=== PATIENT | female | born 1935 | race Caucasian/White ===

== ENCOUNTER 2020-05-10 13:42 | Emergency (ER) | payer MEDICARE, SELFPAY ==
--- NOTE | ~2020-05-10 | CT_ITS ---
EXAMINATION: CT cervical spine wo con EXAM DATE: 05/10/2020 14:31 INDICATION: Neck injury, fall. Left frontal head injury. TECHNIQUE: Spiral CT of the cervical spine was performed without contrast. Axial images were reviewe d. Coronal and sagittal reformatted images were also reviewed. The dose-length product (DLP) for thi s examination was 605.33 mGy-cm. The exposure was tailored according to patient size (auto mA exposu re control), and iterative reconstruction (ASIR) was used as additional dose reduction technique. Th ere is no prior study for comparison. FINDINGS: There is no evidence of acute cervical fracture. The odontoid process is intact. Pre-dens space is normal. Prevertebral soft tissue is normal. There are no soft tissue abnormalities identi fied. There is no disc space widening or traumatic vertebral body subluxation suspected. There is a dvanced cervical spondylosis. A detailed level by level evaluation of spondylosis can be added as ad dendum if requested. IMPRESSION: 1. No acute cervical fracture. 2. Advanced cervical spondylosis. Reviewed, dictated and finalized at location B. RAL LOT ATTENDANT
--- NOTE | ~2020-05-10 | CT_ITS ---
EXAMINATION: CT brain wo con DATE: 05/10/2020 14:31 INDICATION: Head injury. TECHNIQUE: Computed tomography (CT) of the head was performed without intravenous contrast. The mA wa s adjusted according to patient size. Iterative reconstruction technique was employed. The dose-lengt h product was 605.33 mGy-cm. COMPARISON: None FINDINGS: There is an old lacunar infarct in left lentiform nucleus. There are scattered areas of low attenuation in the cerebral white matter. There is no intracranial hemorrhage, acute infarction, or abnormal intracranial mass lesion. The ventricles are normal in size. There are likely changes of ocu lar lens replacement surgeries. There is mucosal thickening in right maxillary sinus with thickening and sclerosis of the sinus sanchez, consistent with chronic sinusitis. The mastoid air cells are normal . IMPRESSION: 1. 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 2. Moderate nonspecific cerebral white matter disease, which likely represents chronic small vessel i schemic disease. 3. Chronic sinusitis. Reviewed, dictated and finalized at location A. UNTANT PROPERTY IMPRESSION: 1. 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 2. Moderate nonspecific cerebral white matter disease, which likely represents chronic small vessel ischemic disease. 3. Chronic sinusitis.
[2020-05-10 14:02] VITALS: BP 155/67; PULSE 103; RESP 20; TEMP 36.6; O2SAT 100
[2020-05-10 14:45] VITALS: BP 144/69; PULSE 92; RESP 20; O2SAT 100
--- NOTE | 2020-05-10 15:13 | ED.FALL ---
HPI - Fall General Chief Complaint: Fall Stated Complaint: ambulance Source: patient Mode of arrival: ambulatory History of Present Illness HPI Narrative: This is a 85-year-old female from [facility] that had a fall earlier today she was out of doors on the grass and hit her head and has a abrasion to the left frontal scalp area, the patient was brought in by EMS had a cervical collar placed the patient was not complaining of any headaches no loss of consciousness no neck pain no numbness or tingling in her in her arms or fingers can move all extremities with no bruising. Currently there is no shortness of breath no headaches no blurry vision no nausea vomiting no chest pain or abdominal pain. complaint: fall Onset (ago): hour(s) Fall from: standing Fall witnessed: yes, by living facility staff Place fall occurred[facility] Loss of consciousness: none Prolonged down time: no Symptoms prior to fall: none Related Data Home Medications Medication Instructions Recorded Confirmed aspirin [Aspir-81] 81 mg PO DAILY 05/10/20 05/10/20 calcium 500 mg PO DAILY 05/10/20 05/10/20 clobetasol 1 applic TOPICAL BID 05/10/20 05/10/20 lisinopril 5 mg PO DAILY 05/10/20 05/10/20 metformin 500 mg PO HS 05/10/20 05/10/20 dhelvezzjlau-zcyh-rxiec acid 1 tablet PO DAILY 05/10/20 05/10/20 [Centrum] sertraline 100 mg PO DAILY 05/10/20 05/10/20 Allergies Allergy/AdvReac Type Severity Reaction Status Date / Time No Known Allergies Allergy Verified 05/10/20 14:17 Review of Systems Review of Systems: All systems reviewed & are unremarkable except as noted in HPI and below [facility] Past Medical History Medical History HTN (hypertension) Social History Social History Gender identity (if verbalized by the patient): Female Exam Const: General: no acute distress Orientation/consciousness: patient oriented x3 HENMT: Head: normal to inspection Head images: 1. abrasion Eyes: Pupils: Equal, round and reactive pupils present Neck: Neck: normal visual inspection, no lymphadenopathy and no meningeal signs Chest: Chest palpation & inspection: normal inspection of the chest Resp: Effort & Inspection: normal respiratory effort Auscultation: clear to auscultation bilaterally Cardio: Rate: regular rate Rhythm: regular rhythm GI: Auscultation: normal bowel sounds : General: Yes no CVA tenderness Back/Spine/Pelvis: Back: no CVA tenderness Skin: General skin exam: normal color Other: abrasion to left frontal scalp area /forehead Neuro: General: moves all extremities, no meningeal signs and no focal motor deficits Extrem: General: normal to inspection Psych: Mental Status: mental status grossly normal Course Course Emergency Course: reassessment of patient, doing well no neurological deficits currently no headaches no blurry vision no nausea vomiting and informed patient of CT scan of head and neck were without any acute findings. Vital Signs Vital signs: Vital Signs Temperature 36.6 C 05/10/20 14:02 Pulse Rate 103 H 05/10/20 14:02 Respiratory Rate 20 05/10/20 14:02 Blood Pressure 155/67 H 05/10/20 14:02 Pulse Oximetry 100 05/10/20 14:02 Temperature 36.6 C 05/10/20 14:02 Pulse Rate 103 H 05/10/20 14:02 Respiratory Rate 20 05/10/20 14:02 Blood Pressure 155/67 H 05/10/20 14:02 Pulse Oximetry 100 05/10/20 14:02 Critical Care Time Critical Care Time Critical Care Time: No Discharge Plan Discharge Clinical Impression: Abrasion head Qualifiers: Encounter type: initial encounter Qualified Code(s): S00.91XA - Abrasion of unspecified part of head, initial encounter Fall Qualifiers: Encounter type: initial encounter Qualified Code(s): W19.XXXA - Unspecified fall, initial encounter Patient Disposition: Home, Self-Care Condition: Stable Instruct
[2020-05-10 15:45] VITALS: BP 158/70; PULSE 95; RESP 20; O2SAT 100
== END 2020-05-10 15:45 ==
PROVIDERS: Emergency Provider Emergency Medicine; PCP Family Medicine
DX: S00.91XA Abrasion of unspecified part of head, initial encounter (principal); W19.XXXA Unspecified fall, initial encounter; I10 Essential (primary) hypertension
CPT/HCPCS: 70450; 72125; 99282; 99284

== ENCOUNTER 2020-05-28 17:58 | Observation (INO) | payer MEDICARE, SELFPAY ==
--- NOTE | ~2020-05-28 | XR_ITS ---
EXAMINATION: XR chest 2V 05/28/2020 18:42 INDICATION: Dizziness. Fall. Generalized weakness. PROCEDURE: PA and lateral views of the chest COMPARISON: 09/23/2016 FINDINGS: The lungs are clear. The cardiomediastinal silhouette is within normal limits. There are no pleural effusions. There is no pneumothorax suspected. IMPRESSION: 1: NO ACUTE CARDIOPULMONARY DISEASE. Reviewed, dictated and finalized at location A. ONICS ENGINEERING TECHNOLOGIST
--- NOTE | ~2020-05-28 | CT_ITS ---
EXAMINATION: CT brain wo con DATE: 05/28/2020 18:41 INDICATION: Dizziness and lightheadedness. Status post fall. TECHNIQUE: Computed tomography (CT) of the head was performed without intravenous contrast. The dose- length product was 529.67 mGy-cm. The mA was adjusted according to patient size. Iterative reconstruc tion technique was employed. COMPARISON: CT dated 05/10/2020 FINDINGS: Mild generalized atrophy. There are scattered moderate periventricular and subcortical whit e matter changes, most likely related to small vessel ischemic disease (microangiopathy). No acute in tracranial hemorrhage, infarction, mass or mass effect. There is mucosal thickening of the right maxi llary sinus with air-fluid level. Mastoids are pneumatized. No depressed skull fractures. IMPRESSION: 1. No acute intracranial abnormality. 2: Right maxillary sinusitis. 3: Chronic age-related findings. Reviewed, dictated and finalized at location A. MOTIVE PROJECT ENGINEER
--- NOTE | 2020-05-28 18:09 | ECG_ITS ---
Measurements Intervals [place] Rate: 92 P: 29 ME: 182 QRS: -58 QRSD: 90 T: 66 QT: 358 QTc: 444 Interpretive Statements SINUS RHYTHM LEFT ANTERIOR FASCICULAR BLOCK BASELINE ARTIFACT- I, II, III, AVR, AVL, AVF, V1-V3 ABNORMAL ECG Electronically Signed On 05-28-2020 19:00:27 SENIOR C WEB DEVELOPER by Ezekiel Delacruz D.O.
--- NOTE | 2020-05-28 18:11 | ED.FALL ---
HPI - Fall General Chief Complaint: Fall Stated Complaint: AMB Time Seen by Provider: 05/28/20 18:00 Source: patient Mode of arrival: EMS Limitations: no limitations History of Present Illness HPI Narrative: 85-year-old woman history of falls comes in today via EMS after having fallen in her apartment at [place]. Staff states that they did not see her fall but heard a thump and found her on the floor conscious. She states that she had just returned from the bathroom where she had a diarrheal stool and felt lightheaded before she fell. She did not lose consciousness. She denies any preceding chest pain, shortness breath, dizziness, vertigo, or flushing. She states she has some mild abdominal pain. Onset (ago): hour(s) (1) Fall from: standing Fall witnessed: no Place fall occurred: [facility] Loss of consciousness: none Prolonged down time: no Symptoms prior to fall: lightheadedness Context: history of frequent falls Location of injury: head Location of injury - extremities: Bilateral: lower leg Severity: mild Associated symptoms (after fall): denies Related Data Home Medications Medication Instructions Recorded Confirmed aspirin [Aspir-81] 81 mg PO DAILY 05/10/20 05/28/20 calcium 500 mg PO DAILY 05/10/20 05/28/20 clobetasol 1 applic TOPICAL BID 05/10/20 05/28/20 lisinopril 5 mg PO DAILY 05/10/20 05/28/20 metformin 500 mg PO HS 05/10/20 05/28/20 ivemkdnxmyri-pgdd-zjqpx acid 1 tablet PO DAILY 05/10/20 05/28/20 [Centrum] sertraline 100 mg PO DAILY 05/10/20 05/28/20 Allergies Allergy/AdvReac Type Severity Reaction Status Date / Time No Known Allergies Allergy Verified 05/10/20 14:17 Review of Systems Constitutional: Constitutional: Denies chills and Denies fever(s) Eyes: Eyes: Denies change in vision and Denies photophobia ENT: Denies dysphagia, Denies nasal congestion and Denies sore throat Cardiovascular: Cardiovascular: Denies chest pain and Denies radiating jaw, neck or arm pain Respiratory: Respiratory: Denies cough and Denies dyspnea Gastrointestinal: Gastrointestinal: Reports abdominal pain, Reports diarrhea, Denies nausea and Denies vomiting Genitourinary: Genitourinary: Denies nocturia and Denies dysuria Musculoskeletal: Musculoskeletal: Denies arthralgias and Denies joint swelling Integumentary/Breasts: Skin/Breast: Denies pruritus, Denies erythema and Denies rash Neurologic: Denies vertigo, Denies dizziness, Denies syncope, Denies headache(s) and Reports weakness Hematologic/Lymphatic: Hematologic/Lymphatic: Denies easy bleeding and Denies easy bruising Allergic/Immunologic: Allergic/Immunologic: Denies throat swelling and Denies tongue swelling [facility] Past Medical History Medical History (Updated 05/28/20 @ 21:04 by Julius Jimenez MD) HTN (hypertension) T2DM (type 2 diabetes mellitus) Surgical History Surgical History (Updated 05/28/20 @ 21:04 by Julius Jimenez MD) H/O: hysterectomy Social History Social History Smoking status: Never smoker Alcohol intake: never Substance use: never Living arrangements: assisted living Gender identity (if verbalized by the patient): Female Exam Const: General: healthy appearing, no acute distress and alert Orientation/consciousness: patient oriented x3 Limitations: no limitations HENMT: Head: normal to inspection Ears: external ears normal, TM's normal bilaterally and EAC's normal General nose exam: Normal nares present Face and sinus: normal facial exam Mouth: Yes moist mucous membranes Throat: posterior oropharynx normal Eyes: Conjunctivae: conjunctivae normal Pupils: Equal, round and reactive pupils present EOM: EOMs intact bilaterally Neck: Neck: normal visual inspection and no lymphadenopathy Other: No tenderness, abnormal contour, or swelling Resp: Effort & Inspection: normal respiratory effort Auscultation: clear to auscultation bilat
[2020-05-28 18:19] VITALS: BP 126/70; PULSE 90; RESP 18; TEMP 36.6; O2SAT 96
[2020-05-28 18:49] LABS: Basophils Absolute Auto 0.04 K/mm3 (0.00-0.10); Basophils Percent Auto 0.2 % (0.0-1.0); Eosinophils Absolute Auto 0.03 K/mm3 (0.02-0.50); Eosinophils Percent Auto 0.2 % (1.0-6.0); Hemoglobin 14.1 g/dL (11.7-13.8); Immature Granulocyte Absolute 0.15 K/mm3 (0.00-0.00); Immature Granulocyte Percent A 0.8 % (0.0-0.0); Lymphocytes Absolute Auto 0.59 K/mm3 (1.10-4.50); Lymphocytes Percent Auto 3.3 % (18.0-42.0); Mean Corpuscular Hemoglobin 28.2 pg (27.0-31.0); Mean Platelet Volume 9.6 fl (9.2-11.8); Monocytes Absolute Auto 0.86 K/mm3 (0.10-0.90); Monocytes Percent Auto 4.7 % (2.0-11.0); Neutrophils Absolute Auto 16.5 K/mm3 (1.7-7.2); Neutrophils Percent Auto 90.8 % (50.0-70.0); Platelet Count Result 296 K/mm3 (150-420); Red Cell Distribution Width 14.5 % (11.6-14.4); White Blood Count 18.1 K/mm3 (4.8-10.8)
[2020-05-28 18:50] VITALS: BP 106/50; PULSE 75
[2020-05-28 18:52] VITALS: BP 106/54; PULSE 75
[2020-05-28 18:56] VITALS: BP 100/50; PULSE 88
--- NOTE | 2020-05-28 19:01 | PC.NURSE ---
daughter called & Updated
[2020-05-28 19:04] LABS: Partial Thromboplastin Time 23.7 SEC (23.90-30.70); Prothrombin Time 10.2 Seconds (9.50-12.10)
[2020-05-28 19:09] LABS: Alanine Aminotransferase 30 U/L (14-59); Albumin Level 4.2 g/dL (3.4-5.0); Alkaline Phosphatase 58 U/L (46-116); Anion Gap 9 mmol/L (8-16); Aspartate Amino Transferase 28 U/L (15-37); Bilirubin,Total 0.4 mg/dL (0.00-1.00); Blood Urea Nitrogen 28 mg/dL (7-18); Calcium 9.9 mg/dL (8.5-10.1); Carbon Dioxide 29 mmol/L (21-32); Chloride 101 mmol/L (98-108); Estimated CRCL calculation 26 ml/min; Estimated Glomerular Filt Rate 38; Glucose 173 mg/dL (70-99); Lactic Acid Reflex 2.2 mmol/L (0.4-2.0); Osmolality Calculated 297 mOsm/kg (285-295); Potassium 4.5 mmol/L (3.5-5.1); Sodium 139 mmol/L (136-145); Total Protein 8.5 g/dL (6.4-8.2)
[2020-05-28] MEDS: SODIUM CHLORIDE 0.9% IV 1,000 ML 999 ML IV CONT (19:47)
[2020-05-28 19:53] LABS: Add Urine Microscopic? YES; Appearance Urine Sl Cloudy (Clear); Bilirubin Urine 1+ (Negative); Blood Urine 2+ (Negative); Color Urine Yellow (Yellow); Glucose Urine UA Negative (Negative); Ketones Urine Trace (Negative); Leukocyte Esterase Ur Negative LEU/UL (Negative); Nitrate Urine Negative (Negative); Protein Urine 2+ (Negative); Specific Grav Ur >= 1.030 (1.010-1.020); Urobilinogen Urine 0.2 mg/dL (0.2-1.0)
[2020-05-28 19:58] LABS: Amorphous Sediment Urine Few; Bacteria Urine Trace /hpf; Squamous Epithelial Cell Urine Few /hpf (Few); WBC Urine 0-3 /hpf (0-3)
[2020-05-28 20:31] LABS: Occult Blood Negative (Negative)
[2020-05-28 20:45] LABS: SARS-CoV-2 Ag Negative (Negative)
[2020-05-28 21:33] VITALS: BP 102/60; PULSE 75; RESP 18; TEMP 37.2; O2SAT 98
[2020-05-28 21:45] VITALS: BP 138/67; PULSE 100; RESP 20; TEMP 37.3; O2SAT 98
[2020-05-28 21:45] LABS: Reflex Lactic Acid Yes or No Add Lactic
--- NOTE | 2020-05-28 22:00 | ADMGEN ---
This patient, Mei Wilkes, was admitted to 2nd Floor Room 209-1. Patient oriented to hospital policies and general routines including ID bracelet, bed and alarms, visiting hours, pain management, procedures, bathroom and other care routines, personal items, smoking policy, room service/diet, and visiting hours. Information on how to activate the Rapid Response Team has been discussed. Patient are encouraged to report perceived risks to care and to ask questions if they do not understand what they are told or what they should do.
[2020-05-28 22:17] LABS: Lactic Acid 2.4 mmol/L (0.4-2.0)
[2020-05-28] MEDS: metFORMIN HCL XR 500 MG TAB.SR.24H PO (22:26)
[2020-05-28] MEDS: SODIUM CHLORIDE 0.9% IV 1,000 ML 100 ML IV CONT (22:26)
[2020-05-28] MEDS: SODIUM CHLORIDE 0.9% IV 500 ML IV CONT (22:45)
[2020-05-28 23:09] VITALS: BMI 25.7
[2020-05-29] VITALS: BP 126/51; PULSE 88; RESP 20; TEMP 37.2; O2SAT 96
[2020-05-29] MEDS: SODIUM CHLORIDE 0.9% IV 1,000 ML 100 ML IV CONT (02:33)
[2020-05-29 03:01] LABS: Troponin I 7.5 ng/L (0.00-60.4)
[2020-05-29 03:09] LABS: Lactic Acid Reflex 2.4 mmol/L (0.4-2.0)
[2020-05-29 05:54] LABS: Basophils Absolute Auto 0.02 K/mm3 (0.00-0.10); Basophils Percent Auto 0.2 % (0.0-1.0); Eosinophils Absolute Auto 0.06 K/mm3 (0.02-0.50); Eosinophils Percent Auto 0.6 % (1.0-6.0); Hemoglobin 11.6 g/dL (11.7-13.8); Immature Granulocyte Absolute 0.05 K/mm3 (0.00-0.00); Immature Granulocyte Percent A 0.5 % (0.0-0.0); Lymphocytes Absolute Auto 1.28 K/mm3 (1.10-4.50); Mean Corpuscular HGB Conc 31.4 g/dL (32.0-36.0); Mean Corpuscular Hemoglobin 27.8 pg (27.0-31.0); Mean Corpuscular Volume 88.5 fL (78.0-102.0); Mean Platelet Volume 9.7 fl (9.2-11.8); Monocytes Absolute Auto 0.54 K/mm3 (0.10-0.90); Monocytes Percent Auto 5.1 % (2.0-11.0); Neutrophils Absolute Auto 8.7 K/mm3 (1.7-7.2); Neutrophils Percent Auto 81.6 % (50.0-70.0); Platelet Count Result 236 K/mm3 (150-420); Red Blood Count 4.18 M/mm3 (4.20-5.40); Red Cell Distribution Width 14.6 % (11.6-14.4); White Blood Count 10.6 K/mm3 (4.8-10.8)
[2020-05-29 06:20] LABS: Alanine Aminotransferase 20 U/L (14-59); Albumin Level 3.2 g/dL (3.4-5.0); Alkaline Phosphatase 44 U/L (46-116); Anion Gap 8 mmol/L (8-16); Aspartate Amino Transferase 28 U/L (15-37); Bilirubin,Total 0.4 mg/dL (0.00-1.00); Blood Urea Nitrogen 27 mg/dL (7-18); Calcium 8.8 mg/dL (8.5-10.1); Carbon Dioxide 27 mmol/L (21-32); Chloride 104 mmol/L (98-108); Estimated CRCL calculation 36 ml/min; Estimated Glomerular Filt Rate 50; Glucose 103 mg/dL (70-99); Osmolality Calculated 293 mOsm/kg (285-295); Potassium 4.6 mmol/L (3.5-5.1); Sodium 139 mmol/L (136-145); Total Protein 7.2 g/dL (6.4-8.2); Troponin I 6.9 ng/L (0.00-60.4)
[2020-05-29 08:00] VITALS: BP 154/60; PULSE 78; RESP 29; TEMP 37; O2SAT 97
[2020-05-29 08:01] LABS: Glucose Point of Care 103 (65-105)
[2020-05-29] MEDS: CALCIUM CARBONATE (OSCAL) 500 MG TABLET PO (10:03)
[2020-05-29] MEDS: ASPIRIN 81 MG ENTERIC TABLET PO (10:05)
[2020-05-29] MEDS: SERTRALINE HCL 50 MG TABLET 100 MG PO (10:05)
[2020-05-29] MEDS: lisinopriL 5 MG TABLET PO (10:05)
[2020-05-29] MEDS: THERAPEUTIC MULTIVITAMINS/MINERALS TAB (*BKC) 1 TABLET PO (10:06)
--- NOTE | 2020-05-29 11:05 | PM.SD2 ---
Same Day Admit/Disch: HPI History of Present Illness Chief complaint: dehydration diarrhea Narrative: Mei Wilkes is a 85 year old female who comes to the hospital after having fallen at her home in [place] without loss of consciousness. Patient was found to be dehydrated and has a UTI. Patient stated that she did have some diarrhea however this has resolved as of today admitting that her stools are now soft. Physical therapy saw patient admitted termination as she would be able to go home. Patient placed in observation for overnight rehydration PT assessment and resolution of diarrhea and IV antibiotics for her urinary tract infection. [facility] Past Medical History Medical History HTN (hypertension) T2DM (type 2 diabetes mellitus) Surgical History Surgical History H/O: hysterectomy Social History Social History Smoking status: Never smoker Alcohol intake: never Substance use: never Substance use type: does not use Living arrangements: assisted living Gender identity (if verbalized by the patient): Female Sexual Orientation (if Verbalized by the Patient): Straight or Heterosexual Spiritual care concerns: No Same Day Admit/Disch: Med Pre-admit Medications Home Medications Medication Instructions Recorded Confirmed Type aspirin [Aspir-81] 81 mg PO DAILY 05/10/20 05/28/20 History calcium 500 mg PO DAILY 05/10/20 05/28/20 History clobetasol 1 applic TOPICAL BID 05/10/20 05/28/20 History lisinopril 5 mg PO DAILY 05/10/20 05/28/20 History metformin 500 mg PO HS 05/10/20 05/28/20 History vszfiabwnqjd-zqkn-svkmo acid 1 tablet PO DAILY 05/10/20 05/28/20 History [Centrum] sertraline 100 mg PO DAILY 05/10/20 05/28/20 History sulfamethoxazole-trimethoprim 1 tablet PO Q12H #6 tablet 05/29/20 Rx [Bactrim DS] Exam Const: General: cooperative, comfortable, no acute distress, alert, awake and Physically active Nutritional Appearance: average body habitus Resp: Effort & Inspection: normal respiratory effort Auscultation: clear to auscultation bilaterally Cardio: Rate: regular rate Heart sounds: Murmur heart sound present systolic Extrem: General: no pedal edema DS: Data Data Completed and Pending Labs on day of discharge: Labs from last 24 hours 05/29/20 05/29/20 05/29/20 07:58 05:40 05:40 WBC 10.6 RBC 4.18 L Hgb 11.6 L Hct 37.0 MCV 88.5 MCH 27.8 MCHC 31.4 L RDW 14.6 H Plt Count 236 MPV 9.7 Immature Gran % (Auto) 0.5 H Neut % (Auto) 81.6 H Lymph % (Auto) 12.0 L [place] % (Auto) 5.1 Eos % (Auto) 0.6 L Baso % (Auto) 0.2 Lymph # (Auto) 1.28 [place] # (Auto) 0.54 Eos # (Auto) 0.06 Baso # (Auto) 0.02 Abs Immat Gran (auto) 0.05 H Absolute Neuts (auto) 8.7 H Absolute Nucleated RBC 0.00 Nucleated RBC % 0.0 PT INR APTT Sodium 139 Potassium 4.6 Chloride 104 Carbon Dioxide 27 Anion Gap 8 BUN 27 H Creatinine 1.05 H Estim Creat Clear Calc 36 Estimated GFR 50 L Glucose 103 H POC Capillary Glucose 103 Calculated Osmolality 293 Lactic Acid Calcium 8.8 Total Bilirubin 0.4 AST 28 ALT 20 Alkaline Phosphatase 44 L Troponin I 6.9 Total Protein 7.2 Albumin 3.2 L Urine Color Urine Appearance Urine pH Ur Specific [place] Urine Protein Urine Glucose (UA) Urine Ketones Ur Blood (Man) Urine Nitrate Urine Bilirubin Urine Urobilinogen Leukocyte Esterase Rfl Urine RBC Urine WBC Ur Squamous Epith Cells Amorphous Sediment Urine Bacteria Stool Occult Blood Stool Norovirus (PCR) SARS-CoV-2 Ag (Rapid) 05/29/20 05/29/20 05/28/20 01:56 01:56 21:50 WBC RBC Hgb Hct MCV MCH MCHC RDW Plt Coun
[2020-05-29 11:49] LABS: Glucose Point of Care 107 (65-105)
--- NOTE | 2020-05-30 13:30 | PC.NURSE ---
Pt states she received and understood her discharge instructions. She also states I had the best people .
[2020-06-03 22:39] LABS: Norovirus RNA PCR, Stool NOT DETECTED
--- NOTE | 2020-06-07 10:59 | PC.NURSE ---
2-2-21 @ 1458 ivf were stopped. delmi figueroa
== END 2020-05-29 13:20 ==
LOC: CHSED 20:19 → CHS2ND 20:58
PROVIDERS: Admitting Provider Emergency Medicine; Emergency Provider Emergency Medicine; PCP Family Medicine; Visit Provider Emergency Medicine
DX: N39.0 Urinary tract infection, site not specified (principal); E86.0 Dehydration; R19.7 Diarrhea, unspecified; I10 Essential (primary) hypertension; R10.9 Unspecified abdominal pain; R42 Dizziness and giddiness; E11.9 Type 2 diabetes mellitus without complications; Z20.822 Contact with and (suspected) exposure to COVID-19; Z90.710 Acquired absence of both cervix and uterus; Z79.82 Long term (current) use of aspirin
CPT/HCPCS: 36415; 70450; 71046; 80053; 81001; 82272; 82948; 83605; 84484; 85025; 85610; 85730; 87040; 87045; 87046; 87086; 87324; 87426; 87427; 87798; 89055; 93005; 96361; 96365; 96366; 96367; 97161; 99285; A9270; C9803; G0378; J0696; J3370; J7030; J7040

== ENCOUNTER 2020-09-26 08:58 | Outpatient (CLI) | payer MEDICARE, SELFPAY ==
--- NOTE | ~2020-09-26 | XR_ITS ---
EXAMINATION: XR thoracic spine 3V EXAM DATE: 09/26/2020 09:40 INDICATION: Thoracic back pain, r lower rib pain, no known recent injury. TECHNIQUE: Frontal and lateral projections of the thoracic spine as well as lateral swimmers projecti on of the upper thoracic spine for interpretation. There is no prior study for comparison. FINDINGS: There is mid thoracic diffuse idiopathic skeletal hyperostosis. Mild mid and lower thoracic spondylosis. Mild to moderate compression fractures at 3 consecutive thoracolumbar levels, T12-L2 or L1-L3. Can't exclude acute component to one of these. Paraspinal soft tissue is unremarkable. Cardio mediastinal silhouette is normal image portion of ribs unremarkable. IMPRESSION: 1. Mild to moderate anterior wedging of 3 consecutive thoracolumbar levels, can't exclude acute comp onent to one or more of them. These could be better evaluated with CT lumbar spine without contrast i f indicated clinically. 2. Thoracic diffuse idiopathic skeletal hyperostosis. . Reviewed, dictated and finalized at location B. IMPRESSION: 1. Mild to moderate anterior wedging of 3 consecutive thoracolumbar levels, ca n't exclude acute component to one or more of them. These could be better evalu ated with CT lumbar spine without contrast if indicated clinically. 2. Thoracic diffuse idiopathic skeletal hyperostosis. .
--- NOTE | ~2020-09-26 | XR_ITS ---
EXAMINATION: XR ribs RT 2V w CXR 2V EXAM DATE: 09/26/2020 09:40 INDICATION: Thoracic back pain, r lower rib pain right lower rib pain. TECHNIQUE: Frontal projection of the upper right ribs, frontal projection of the lower right ribs, ob lique projection of the right ribs, frontal chest x-ray(s) for interpretation. Correlation is made to chest x-ray 05/28/2020 FINDINGS: There are no displaced acute right rib fractures identified. There is no soft tissue abno rmality seen. No confluent consolidation, pneumothorax or pleural effusion suspected. Cardiomediastin al silhouette is normal. Mild to moderate compression fractures most likely L1-L3, probably chronic b ut can't exclude acute component. IMPRESSION: L1-L3 compression fractures probably chronic but can't exclude acute component. No displa lewis rib fractures. Reviewed, dictated and finalized at location B. IMPRESSION: L1-L3 compression fractures probably chronic but can't exclude acut e component. No displaced rib fractures.
== END 2020-09-26 08:59 | disposition home or self-care (01) ==
LOC: CHSIMG 09:02
PROVIDERS: PCP Family Medicine; Visit Provider Family Medicine
DX: M54.6 Pain in thoracic spine (principal); R07.81 Pleurodynia; R07.9 Chest pain, unspecified
CPT/HCPCS: 71046; 71100; 72072

== ENCOUNTER 2022-02-07 10:46 | Emergency (ER) | payer MEDICARE, SELFPAY ==
--- NOTE | ~2022-02-07 | CT_ITS ---
EXAMINATION: CTA brain carotid DATE: 02/07/2022 12:27 INDICATION: Right hemiparesis. TECHNIQUE: Computed tomographic angiography (CTA) of the head was performed without and with 100 mL O mnipaque-350 intravenous contrast. CTA of the neck was performed with intravenous contrast. Automated exposure control and iterative reconstruction technique were employed. The dose-length product was 1 603.71 mGy-cm. Maximum intensity projection and volume rendered 3D-reconstructions were created by ester jackson technologist on a separate workstation. COMPARISON: Head CT 05/28/2020 FINDINGS: HEAD CTA: There are scattered areas of low attenuation in the cerebral white matter. There is no intr acranial hemorrhage, acute infarction, or abnormal intracranial mass lesion. There is an infarct in l eft frontal lobe. There is an old lacunar infarct in the left basal ganglia. The ventricles are abhinav l in size. There is mucosal thickening in right maxillary sinus with thickening and sclerosis of the sinus sanchez, consistent with chronic sinusitis. The mastoid air cells are normal. There are likely ch anges of ocular lens replacement surgeries. The left vertebral artery is dominant. There is no signif icant stenosis of the basilar artery or the posterior cerebral arteries. There is no significant sten osis of the intracranial internal carotid arteries or anterior or middle cerebral arteries. Anterior communicating artery is normal. Posterior communicating arteries are not identified. There is no aneu rysm. NECK CTA: There are no pathologically enlarged lymph nodes. There is no significant stenosis of the v ertebral arteries. There is plaque in the proximal internal carotid arteries. There is 0% stenosis of the proximal right internal carotid artery relative to normal distal artery lumen diameter (NASCET c riteria). There is 0% stenosis of the proximal left internal carotid artery relative to normal distal artery lumen diameter. There is severe cervical spondylosis. IMPRESSION: 1. Infarct in left frontal lobe, likely acute or subacute. 2. 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 3. Moderate nonspecific cerebral white matter disease, which likely represents chronic small vessel i schemic disease. 4. No aneurysm or significant intracranial internal stenosis. 5. 0% stenosis of the proximal internal carotid arteries relative to normal distal artery lumen diame ters (NASCET criteria). Reviewed, dictated and finalized at location A. IMPRESSION: 1. Infarct in left frontal lobe, likely acute or subacute. 2. 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 3. Moderate nonspecific cerebral white matter disease, which likely represents chronic small vessel ischemic disease. 4. No aneurysm or significant intracranial internal stenosis. 5. 0% stenosis of the proximal internal carotid arteries relative to normal dis nanci artery lumen diameters (NASCET criteria).
[2022-02-07 10:48] VITALS: BP 195/86; PULSE 96; RESP 18; TEMP 36.3; O2SAT 98
--- NOTE | 2022-02-07 10:57 | ED.NEUROSD ---
HPI - Neuro Symptoms/Deficit General Chief Complaint: Suspected CVA Stated Complaint: SENT FROM LONGTERM Time Seen by Provider: 02/07/22 10:57 Source: patient and RN notes reviewed Mode of arrival: wheelchair Limitations: physical limitation and clinical condition History of Present Illness HPI Narrative: [facility] reports that patient had a seizure at approximately 4:00 a.m.. She did not have the facial drooping at that time. She does have a history of stroke on the same side. She has right-sided arm weakness and right leg weakness. Physical therapy was working with her this morning that is when they noted that she seemed to be worse with the facial droop and the right-sided weakness so they wheeled her over in a wheelchair for further evaluation. Nurse reported to me she had a discussion with the family member who does not want any heroic measures. Patient is DNR. They do not wish her to be transferred anywhere they are happy with doing any testing necessary but otherwise only comfort measures. Onset (ago): hour(s) (7) Timing confirmed by: caregiver Location: right face, right arm and right leg History of same: Yes Severity: moderate Quality: weak and constant Relieving factors: none Exacerbating factors: none Context: other (umknown) On Anticoagulants: No Treatments Prior to Arrival: none Related Data Home Medications Medication Instructions Recorded Confirmed aspirin 81 mg tablet,delayed 81 mg PO DAILY 05/10/20 05/28/20 release calcium 500 mg tablet 500 mg PO DAILY 05/10/20 05/28/20 clobetasol 0.05 % topical cream 1 applic topical BID 05/10/20 05/28/20 lisinopril 5 mg tablet 5 mg PO DAILY 05/10/20 05/28/20 metformin 500 mg tablet,extended 500 mg PO HS 05/10/20 05/28/20 release 24 hr multivitamin-ferrous 1 tablet PO DAILY 05/10/20 05/28/20 fumarate-folic acid 18 mg-400 mcg tablet (Centrum) sertraline 100 mg tablet 100 mg PO DAILY 05/10/20 05/28/20 Allergies Allergy/AdvReac Type Severity Reaction Status Date / Time No Known Allergies Allergy Verified 02/07/22 13:18 Review of Systems Review of Systems: ROS unobtainable: Yes unobtainable due to medical condition ( Aphasia which is not new) PMFSH Past Medical History Medical History (Updated 02/07/22 @ 13:03 by Frank Patterson MD) HTN (hypertension) Stroke T2DM (type 2 diabetes mellitus) Surgical History Surgical History H/O: hysterectomy Social History Social History Smoking status: Never smoker Alcohol intake: never Substance use: never Substance use type: does not use Gender identity (if verbalized by the patient): Female Sexual Orientation (if Verbalized by the Patient): Straight or Heterosexual Spiritual care concerns: No Exam Const: General: no acute distress and ill appearing chronically Nutritional Appearance: well nourished and thin Orientation/consciousness: patient oriented x3 Limitations: no limitations HENMT: Head: normal to inspection Ears: external ears normal Face/Nose/Sinus: Normal external nose present Face and sinus: normal facial exam Mouth: Yes moist mucous membranes Eyes: Conjunctivae: conjunctivae normal Pupils: Equal, round and reactive pupils present EOM: EOMs intact bilaterally Neck: Neck: normal visual inspection Resp: Effort & Inspection: normal respiratory effort Auscultation: clear to auscultation bilaterally Cardio: Rate: regular rate Rhythm: regular rhythm Heart sounds: Murmur heart sound present systolic early, III/ and at the right sternal border GI: GI Palp: Yes Soft to palpation and No Tenderness to palpation present (GI) Auscultation: normal bowel sounds Back/Spine/Pelvis: Cervical Spine: cervical ROM normal Thoracic/Lumbar Spine: thoraco-lumbar ROM normal Skin: General skin exam: normal color Rashes: no rashes Neuro: General: patient oriented x3 and
--- NOTE | 2022-02-07 10:59 | ECG_ITS ---
Measurements Intervals [place] Rate: 96 P: 74 TN: 180 QRS: -70 QRSD: 142 T: 91 QT: 376 QTc: 477 Interpretive Statements SINUS RHYTHM RIGHT BUNDLE BRANCH BLOCK [120+ ms QRS DURATION, UPRIGHT V1, 40+ ms S IN I/aVL/V4/V5/V6] LEFT ANTERIOR FASCICULAR BLOCK [QRS AXIS <= -45, QR IN I, RS IN II] ABNORMAL ECG COMPARED TO ECG 05/28/2020 18:23:03 RIGHT BUNDLE-BRANCH BLOCK NOW PRESENT Electronically Signed On 02-07-2022 15:52:56 CDT by Art Leon M.D.
[2022-02-07 11:28] VITALS: BP 199/83; PULSE 90; RESP 20; TEMP 36.3; O2SAT 99
[2022-02-07 11:28] LABS: Basophils Absolute Auto 0.06 K/mm3 (0.00-0.10); Basophils Percent Auto 0.5 % (0.0-1.0); Eosinophils Absolute Auto 0.05 K/mm3 (0.02-0.50); Eosinophils Percent Auto 0.4 % (1.0-6.0); Hematocrit 37.8 % (35.0-42.0); Hemoglobin 12.3 g/dL (11.7-13.8); Immature Granulocyte Absolute 0.05 K/mm3 (0.00-0.00); Immature Granulocyte Percent A 0.4 % (0.0-0.0); Lymphocytes Absolute Auto 1.59 K/mm3 (1.10-4.50); Lymphocytes Percent Auto 13.4 % (18.0-42.0); Mean Corpuscular HGB Conc 32.5 g/dL (32.0-36.0); Mean Corpuscular Hemoglobin 28.9 pg (27.0-31.0); Mean Corpuscular Volume 88.7 fL (78.0-102.0); Mean Platelet Volume 9.6 fl (9.2-11.8); Monocytes Absolute Auto 0.73 K/mm3 (0.10-0.90); Monocytes Percent Auto 6.1 % (2.0-11.0); Neutrophils Absolute Auto 9.4 K/mm3 (1.7-7.2); Neutrophils Percent Auto 79.2 % (50.0-70.0); Platelet Count Result 324 K/mm3 (150-420); Red Blood Count 4.26 M/mm3 (4.20-5.40); Red Cell Distribution Width 13.9 % (11.6-14.4); White Blood Count 11.9 K/mm3 (4.8-10.8)
[2022-02-07 11:44] LABS: Partial Thromboplastin Time 25.6 SEC (23.90-30.70); Prothrombin Time 10.8 Seconds (9.50-12.10)
[2022-02-07 11:47] LABS: Alanine Aminotransferase 13 U/L (14-59); Albumin Level 3.9 g/dL (3.4-5.0); Alkaline Phosphatase 55 U/L (46-116); Anion Gap 11 mmol/L (8-16); Aspartate Amino Transferase 19 U/L (15-37); Bilirubin,Total 0.4 mg/dL (0.00-1.00); Blood Urea Nitrogen 13 mg/dL (7-18); Carbon Dioxide 26 mmol/L (21-32); Chloride 104 mmol/L (98-108); Estimated CRCL calculation 36 ml/min; Estimated Glomerular Filt Rate > 60; Glucose 119 mg/dL (70-99); Osmolality Calculated 293 mOsm/kg (285-295); Potassium 3.7 mmol/L (3.5-5.1); Sodium 141 mmol/L (136-145); Total Protein 8.1 g/dL (6.4-8.2)
[2022-02-07 11:52] LABS: Troponin I 78.8 ng/L (0.00-60.4)
[2022-02-07 11:55] LABS: Calcium 9.4 mg/dL (8.5-10.1)
[2022-02-07 12:30] VITALS: BP 153/65; PULSE 96; RESP 20; O2SAT 99
[2022-02-07 12:50] VITALS: O2SAT 100
[2022-02-07 12:54] LABS: Appearance Urine Clear (Clear); Bilirubin Urine Negative (Negative); Glucose Urine UA Negative (Negative); Ketones Urine Negative (Negative); Leukocyte Esterase Ur Negative LEU/UL (Negative); Nitrate Urine Negative (Negative); Protein Urine Negative (Negative); Urobilinogen Urine 0.2 mg/dL (0.2-1.0)
[2022-02-07 13:00] LABS: Add Urine Microscopic? YES; Bacteria Urine None seen /hpf; Blood Urine Trace-Intact (Negative); Color Urine Light Yellow (Yellow); RBC Urine 0-2 /hpf (0-2); Squamous Epithelial Cell Urine Rare /hpf (Few); WBC Urine 0-3 /hpf (0-3)
[2022-02-07 13:13] VITALS: BP 172/69; PULSE 96; RESP 20; O2SAT 99
== END 2022-02-07 13:21 ==
PROVIDERS: Emergency Provider Emergency Medicine; PCP Family Medicine
DX: G45.9 Transient cerebral ischemic attack, unspecified (principal); I10 Essential (primary) hypertension
CPT/HCPCS: 36415; 70496; 70498; 80053; 81001; 84484; 85025; 85610; 85730; 93005; 99284; Q9967